=== PATIENT | female | born 1990 | race African-American/Black ===

== ENCOUNTER 2022-08-11 10:46 | Emergency (ER) | payer MEDICAID ==
[~2022-08-11] VITALS: Ht 180.3 cm; Wt 75.6 kg
[~2022-08-11 10:46] MED LIST: PRENTAB28 PO
[2022-08-11 11:11] VITALS: BP 108/74
[2022-08-11] MEDS ORDERED: diphenhdrAMINE HCL 25 MG CAP PO ONE (12:15)
[2022-08-11] MEDS ORDERED: DexAMETHasone 4 MG TAB PO ONE (12:15)
[2022-08-11] MEDS ORDERED: GEN03OS EACHEYE (13:02)
[2022-08-11] MEDS ORDERED: DIP25C PO (13:02)
== END 2022-08-11 13:14 | disposition home or self-care (01) ==
LOC: ER 10:46
DX: H10.32 Unspecified acute conjunctivitis, left eye (principal)